=== PATIENT | male | born 1990 ===

== ENCOUNTER 2017-11-27 13:29 | Emergency (ER) | payer SELFPAY ==
[2017-11-27 13:51] VITALS: BP 137/88; PULSE 74; RESP 18; TEMP 98.3; O2SAT 98
--- NOTE | 2017-11-27 18:07 | C.PDOC ---
Time Seen by Provider: 11/27/17 14:03 Chief Complaint (Nursing): Psychiatric Evaluation Past Medical History Vital Signs: Last Vital Signs Temp 98.3 F 11/27/17 13:48 Pulse 74 11/27/17 13:48 Resp 18 11/27/17 13:48 BP 137/88 11/27/17 13:48 Pulse Ox 98 11/27/17 13:48 Family History: States: Unknown Family Hx - Social History Hx Alcohol Use: Yes Hx Substance Use: Yes - Immunization History Hx Tetanus Toxoid Vaccination: Yes Hx Influenza Vaccination: Yes Hx Pneumococcal Vaccination: No ED Course And Treatment O2 Sat by Pulse Oximetry: 98 Disposition - Disposition Disposition: LEFT W/O BEING SEEN - ER ONLY Disposition Time: 13:48 Condition: UNKNOWN Forms: [facility] (Russian) - Clinical Impression Clinical Impression: Patient left without being seen
== END 2017-11-27 14:40 | disposition left against medical advice (07) ==
LOC: C.ER 13:29 → EDSEX 13:29 → C.ER 14:40
DX: Z02.89 Encounter for other administrative examinations (principal)